=== PATIENT | female | born 1960 | race Caucasian/White ===

== ENCOUNTER 2017-06-08 06:46 | Observation (INO) | payer OTHER ==
[~2017-06-08] VITALS: Ht 167.6 cm; Wt 75.9 kg
[2017-06-08 07:36] LABS: BASOPHIL COUNT 0.1 K/uL (0-0.1); EOSINOPHIL (%) 1.3 % (0-5); EOSINOPHIL COUNT 0.1 K/uL (0-0.3); HEMATOCRIT 43.4 % (36.0-46.0); IMMATURE GRANULOCYTE (%) 0.2 % (0.0-0.7); INSTRUMENT ABS NEUTROPHIL CT 3.4 K/uL; MCHC 33.4 G/DL (30.0-36.0); MCV 86.8 FL (83-99); MEAN PLAT.VOLUME 9.4 uM^3 (9.5-12.4); MONOCYTE (%) 7.8 % (3-12); MONOCYTE COUNT 0.5 K/uL (0-0.8); NEUTROPHIL (%) 56.1 % (45-76); NEUTROPHIL COUNT 3.4 K/uL (1.8-6.4); PLATELET COUNT 292 K/uL (156-360); RBC DIS.WIDTH-CV 12.2 % (11.8-14.6); RBC DIS.WIDTH-SD 38.9 % (39-53)
[2017-06-08 07:55] LABS: TROP-I INTERPRETATION NEGATIVE; TROPONIN-I < 0.01 ng/mL (0.0-0.30)
[2017-06-08 08:07] LABS: ALKALINE PHOSPHATASE 58 IU/L (3-129); ANION GAP 9 MEQ/L (2-14); CHLORIDE 103 MEQ/L (99-109); GFR ESTIMATE (CALCULATED) > 59 mL/min/; GLUCOSE 110 mg/dL (70-99); POTASSIUM 4.9 MEQ/L (3.7-5.4); SAMPLE HEMOLYSIS CHECK 0; SAMPLE ICTERIC CHECK 0; SAMPLE LIPEMIA CHECK 0; SODIUM 141 MEQ/L (136-147); TOTAL BILIRUBIN 0.5 MG/DL (0.0-1.0); UREA NITROGEN (BUN) 13 mg/dL (9-23)
[2017-06-08 10:02] LABS: TROP-I INTERPRETATION NEGATIVE; TROPONIN-I < 0.01 ng/mL (0.0-0.30)
[2017-06-08] MEDS ORDERED: VITAMIN D-32000 UNI2 PO (10:46)
[2017-06-08] MEDS ORDERED: CLARITIN,ALAVAR10 MG PO (10:46)
[2017-06-08 11:57] LABS: HDL CHOLESTEROL 61 MG/DL (Desirable>=50); LDL CHOLESTEROL 110 mg/dL (Desirable<100); NON-HDL CHOLESTEROL 122 mg/dL (Desirable<160); TOTAL CHOLESTEROL 183 mg/dL (Desirable<200); TRIGLYCERIDES 62 MG/DL (Normal: <150)
[2017-06-08 12:22] VITALS: BP 143/92
[2017-06-08 15:58] LABS: TROP-I INTERPRETATION NEGATIVE; TROPONIN-I < 0.01 ng/mL (0.0-0.30)
[2017-06-08] MEDS ORDERED: ASPIR-LOW81 MG PO (17:09)
== END 2017-06-08 17:56 | disposition home or self-care (01) ==
LOC: EME → EDBD 06:46 → EDOF 10:30 → ENRESERV 10:36 → EDOF 10:54 → ENRESERV 11:02 → 5WEST 12:07
PROVIDERS: Internal Medicine; Physician Assistant
DX: R07.9 Chest pain, unspecified (principal); I07.1 Rheumatic tricuspid insufficiency; I45.10 Unspecified right bundle-branch block; I51.7 Cardiomegaly; Z82.49 Family history of ischemic heart disease and other diseases of the circulatory system; Z79.82 Long term (current) use of aspirin; Z79.01 Long term (current) use of anticoagulants; I25.3 Aneurysm of heart; I27.20 Pulmonary hypertension, unspecified; I70.0 Atherosclerosis of aorta; Z90.710 Acquired absence of both cervix and uterus; Z91.040 Latex allergy status; Z88.1 Allergy status to other antibiotic agents
CPT/HCPCS: 71020; 80053; 80061; 84484; 85025; 85379; 93005; G0378

== ENCOUNTER 2017-07-06 08:53 | Observation (INO) | payer OTHER ==
[~2017-07-06] VITALS: Ht 167.6 cm; Wt 70.0 kg
[~2017-07-06 08:53] MED LIST: ASPIR-LOW81 MG PO; CLARITIN,ALAVAR10 MG PO; VITAMIN D-32000 UNI2 PO
[2017-07-06 10:04] LABS: BASOPHIL (%) 0.8 % (0-1); BASOPHIL COUNT 0.1 K/uL (0-0.1); EOSINOPHIL (%) 0.7 % (0-5); EOSINOPHIL COUNT 0.1 K/uL (0-0.3); HEMATOCRIT 40.6 % (36.0-46.0); HEMOGLOBIN 14.1 G/DL (11.9-15.5); IMMATURE GRANULOCYTE (%) 0.1 % (0.0-0.7); LYMPHOCYTE (%) 16.7 % (15-42); LYMPHOCYTE COUNT 1.5 K/uL (1.0-2.8); MCH 29.9 PG (29.0-34.0); MCHC 34.7 G/DL (30.0-36.0); MCV 86.2 FL (83-99); MONOCYTE (%) 5.8 % (3-12); MONOCYTE COUNT 0.5 K/uL (0-0.8); NEUTROPHIL (%) 75.9 % (45-76); NEUTROPHIL COUNT 6.6 K/uL (1.8-6.4); PLATELET COUNT 312 K/uL (156-360); RBC DIS.WIDTH-SD 38.1 % (39-53); RED BLOOD COUNT 4.71 M/uL (3.80-5.20); WHITE BLOOD COUNT 8.7 K/uL (4.1-10.2)
[2017-07-06 10:19] LABS: ALBUMIN 4.1 g/dL (3.2-4.8); CHLORIDE 104 mEq/L (99-109); POTASSIUM 4.2 mEq/L (3.7-5.4); SODIUM 139 mEq/L (136-147)
[2017-07-06 10:20] LABS: MAGNESIUM 2.1 mg/dL (1.3-2.7)
[2017-07-06 10:21] LABS: GLUCOSE 94 mg/dL (70-99)
[2017-07-06 10:22] LABS: TOTAL PROTEIN 6.7 g/dL (6.4-8.3); TROP-I INTERPRETATION NEGATIVE; TROPONIN-I < 0.01 ng/mL (0.0-0.30)
[2017-07-06 10:23] LABS: TOTAL BILIRUBIN 0.4 mg/dL (0.0-1.0)
[2017-07-06 10:25] LABS: ALKALINE PHOSPHATASE 58 IU/L (3-129); CREATININE 0.8 mg/dL (0.6-1.3); GFR ESTIMATE (CALCULATED) > 59 mL/min/
[2017-07-06 10:26] LABS: UREA NITROGEN (BUN) 18 mg/dL (9-23)
[2017-07-06 10:27] LABS: AST (GOT) 17 IU/L (2-34)
[2017-07-06 10:28] LABS: ALT (GPT) 12 IU/L (3-49)
[2017-07-06 13:02] LABS: CREATINE KINASE 117 IU/L (1-294); TOTAL CK 117 IU/L (1-294)
[2017-07-06 13:08] LABS: CK-MB 2.9 ng/mL (0.0-4.9); CKMB RELATIVE INDEX 2.5 (0.0-3.9)
[2017-07-06 13:30] LABS: HDL CHOLESTEROL 58 MG/DL (Desirable>=50); LDL CHOLESTEROL 84 mg/dL (Desirable<100); NON-HDL CHOLESTEROL 105 mg/dL (Desirable<160); TOTAL CHOLESTEROL 163 mg/dL (Desirable<200); TRIGLYCERIDES 103 MG/DL (Normal: <150)
[2017-07-06 13:50] LABS: CREATINE KINASE 111 IU/L (1-294); TOTAL CK 111 IU/L (1-294)
[2017-07-06 13:57] LABS: CK-MB 2.5 ng/mL (0.0-4.9); CKMB RELATIVE INDEX 2.3 (0.0-3.9)
[2017-07-06] MEDS ORDERED: ASPIR-LOW81 MG PO (14:02)
[2017-07-06 14:16] LABS: HDL CHOLESTEROL 57 MG/DL (Desirable>=50); LDL CHOLESTEROL 100 mg/dL (Desirable<100); NON-HDL CHOLESTEROL 113 mg/dL (Desirable<160); TOTAL CHOLESTEROL 170 mg/dL (Desirable<200); TRIGLYCERIDES 65 MG/DL (Normal: <150)
[2017-07-06 15:13] VITALS: BP 158/80
[2017-07-06 16:32] LABS: TROP-I INTERPRETATION NEGATIVE; TROPONIN-I < 0.01 ng/mL (0.0-0.30)
[2017-07-06] MEDS ORDERED: NITROSTAT0.4 MG SL (17:25)
== END 2017-07-06 18:27 | disposition home or self-care (01) ==
LOC: EME 08:53 → EDOF 11:29 → ENRESERV 11:30 → 5WEST 15:02
PROVIDERS: Internal Medicine; Physician Assistant
DX: I08.1 Rheumatic disorders of both mitral and tricuspid valves (principal); R07.89 Other chest pain; J30.2 Other seasonal allergic rhinitis; E78.5 Hyperlipidemia, unspecified; I49.3 Ventricular premature depolarization; E55.9 Vitamin D deficiency, unspecified; Z90.710 Acquired absence of both cervix and uterus; Z88.1 Allergy status to other antibiotic agents; Z79.82 Long term (current) use of aspirin
CPT/HCPCS: 71046; 80053; 80061; 82550 91; 82553; 83735; 83880; 84484; 85025; 85610; 93005; 99281; 99285; G0378; J3010; J7120